=== PATIENT | male | born 2000 | race American Indian/Alaskan Native ===

== ENCOUNTER 2022-05-05 07:41 | Emergency (ER) | payer SELFPAY ==
--- NOTE | 2022-05-05 08:31 | Emergency Department Report ---
ED Psych HPI - General Chief Complaint: Psych Stated Complaint: PSYCH Time Seen by Provider: 05/05/22 07:58 Source: patient, EMS ( EMS documentation not available at time of chart dictation ), RN notes reviewed Mode of arrival: Ambulatory Limitations: No Limitations - History of Present Illness Initial Comments: The patient was evaluated in the emergency department for symptoms described in the history of present illness. He/she was evaluated in the context of the global COVID-19 pandemic, which necessitated consideration that the patient might be at risk for infection with the virus that causes COVID-19. Institutional protocols and algorithms that pertain to the evaluation of patients at risk for COVID-19 are in a state of rapid change based on information released by regulatory bodies including the CDC and federal and state organizations. These policies and algorithms were followed during the patient's care in the emergency department. Please note that these policies, procedures and recommendations changed on a rapid basis. The patient is a 22-year-old gentleman who is brought to the hospital by emergency medical services. The patient himself denies homicidality, suicidality hallucinations, overdose, and access to guns and firearms. On review of systems, he only endorses chronic left-sided knee pain, nontraumatic which is present for 5 years. As per collateral information from nursing team, mother called 911 because the p atient has been rambling, not sleeping, pacing, and experiencing hallucinations. The patient does present with a packet from a local psychiatric facility, uncertain what his existing psychiatric diagnosis is. MD Complaint: other -: year(s) Associated Psychiatric Symptoms: none (Patient denies all symptoms) History of same: Yes Improves With: none Worsens With: none Associated Symptoms: denies other symptoms, other (Left-sided knee pain) - Related Data Previous Rx's Medication Instructions Recorded Last Taken Type Ibuprofen [Motrin] 600 mg PO Q8H PRN #20 tablet 12/18/14 Unknown Rx Allergies Allergy/AdvReac Type Severity Reaction Status Date / Time No Known Allergies Allergy Verified 05/05/22 07:48 ED Review of Systems ROS: Stated complaint: PSYCH Other details as noted in HPI Constitutional: denies: chills, fever Eyes: denies: eye pain, eye discharge, vision change ENT: denies: ear pain, throat pain Respiratory: denies: cough, shortness of breath, wheezing Cardiovascular: denies: chest pain, palpitations Endocrine: no symptoms reported Gastrointestinal: denies: abdominal pain, nausea, diarrhea Genitourinary: denies: urgency, dysuria Musculoskeletal: other (Left-sided knee pain). denies: joint swelling, arthralgia Skin: denies: rash, lesions Neurological: denies: headache, weakness, paresthesias Psychiatric: denies: anxiety, depression Hematological/Lymphatic: denies: easy bleeding, easy bruising ED Past Medical Hx - Past Medical History Hx Psychiatric Treatment: Yes ([facility]) - Social History Smoking Status: Never Smoker - Medications Home Medications: Home Medications Medication Instructions Recorded Confirmed Last Taken Type Ibuprofen [Motrin] 600 mg PO Q8H PRN #20 tablet 12/18/14 Unknown Rx ED Physical Exam - General Limitations: No Limitations General appearance: alert, in no apparent distress - Head Head exam: Present: atraumatic, normocephalic - Eye Eye exam: Present: normal appearance, EOMI. Absent: nystagmus - ENT ENT exam: Present: normal exam, normal orophraynx, mucous membranes moist, normal external ear exam - Neck Neck exam: Present: normal inspection, full ROM. Absent: tenderness, meningismus - Respiratory Respiratory exam: Present: normal lung sounds bilaterally. Absent: respiratory distress, wheezes, rales, rhonchi, stridor, decreased breath sounds - Cardiovascular Cardiovascular Exam: Present: regular rate, normal rhythm, normal heart sounds. Absent: bradycardia, tachycardia, irregular rhythm, systolic murmur, diastolic murmur, rubs, gallop - GI/Abdominal GI/Abdominal exam: Present: soft. Absent: distended, tenderness, guarding, rebound, rigid, pulsatile mass - Rectal Rectal exam: Present: deferred - Extremities Exam Extremities exam: Present: normal inspection, full ROM, other (2+ pulses noted in the bilateral upper and lower extremities. There is no palpable cord. negative Homans sign. Muscular compartments are soft. The pelvis is stable.). Absent: pedal edema, calf tenderness - Back Exam Back exam: Present: normal inspection. Absent: tenderness, CVA tenderness (R), CVA tenderness (L), paraspinal tenderness, vertebral tenderness - Neurological Exam Neurological exam: Present: alert, oriented X3, normal gait, other (No facial droop. Tongue midline. Extraocular movements intact bilaterally. Facial sensation intact to light touch in V1, V2, V3 distribution bilaterally. 5 and a 5 strength in 4 extremities. Sensation intact to light touch in 4 extremities.). Absent: motor sensory deficit - Psychiatric Psychiatric exam: Present: normal affect, normal mood. Absent: homicidal ideation, suicidal ideation - Skin Skin exam: Present: warm, dry, intact, normal color. Absent: rash ED Course Vital Signs 05/05/22 05/05/22 05/05/22 07:41 07:48 09:16 Temperature 98.2 F 97.6 F Pulse Rate 80 82 Respiratory 18 18 Rate Blood Pressure 132/80 145/92 [Right] O2 Sat by Pulse 100 99 98 Oximetry - Reevaluation(s) Reevaluation #1: 05/05/22 08:29 Differential diagnosis, including but not limited to: Encounter for medical screening examination, encounter for behavioral health screening examination Assessment and plan: 22-year-old gentleman, who presents as awake, alert, oriented, sober, of sound mind, GCS 15, Who is not homicidal, who is not suicidal, who denies overdose, who has no acute psychiatric complaints. In my opinion, he does not meet criteria for 1013 hold or involuntary confinement. He does not appear to have an emergent medical condition present at this time. I discussed this with the patient. The patient did indicate he would be happy to speak to one of our psychiatric assessors, and we will therefore obtain mental health evaluation. I anticipate discharge with outpatient follow-up. Patient is agreeable to standard laboratory studies as part of the psychiatric workflow. Do not anticipate any emergent findings. Reevaluation #2: 05/05/22 09:25 Laboratory studies unremarkable. Urinalysis, drug screen and COVID swab pending, in anticipation of psychiatric team's request. However, they are not medically necessary to exclude an emergent condition. This patient is medically suitable for psychiatric consultation, placement, and disposition. Should the psychiatric team recommend psychiatric hospitalization/involuntary confinement, the patient is medically suitable to do so. Should they recommend discharge with outpatient follow-up, he is medically suitable to do so. ED Medical Decision Making - Lab Data Result diagrams: 05/05/22 08:10 05/05/22 08:10 Vital Signs 05/05/22 05/05/22 07:41 07:48 Temperature 98.2 F Pulse Rate 80 Respiratory 18 Rate Blood Pressure 132/80 [Right] O2 Sat by Pulse 100 99 Oximetry Vital Signs 05/05/22 05/05/22 07:41 07:48 Temperature 98.2 F Pulse Rate 80 Respiratory 18 Rate Blood Pressure 132/80 [Right] O2 Sat by Pulse 100 99 Oximetry Critical care attestation.: If time is entered above; I have spent that time in minutes in the direct care of this critically ill patient, excluding procedure time. ED Disposition Clinical Impression: Encounter for medical screening examination, Encounter for behavioral health screening Disposition: 30 STILL A PATIENT Is pt being admited?: No Does the pt Need Aspirin: No Condition: Good
[2022-05-05 08:41] LABS: Hematocrit 48.6 % (35.5-45.6); Hemoglobin 15.6 gm/dl (11.8-15.2); Mean Corpuscular HGB Conc 32 % (32-34); Mean Corpuscular Volume 89 fl (84-94); Platelet Count 200 K/mm3 (140-440); Red Blood Count 5.44 M/mm3 (3.65-5.03)
[2022-05-05] MEDS ORDERED: ALPRAZolam 0.5 MG TAB PO ONE (08:42)
[2022-05-05 08:44] LABS: BUN/Creatinine Ratio 14; Blood Urea Nitrogen 15 mg/dL (9-20); Calcium 9.1 mg/dL (8.4-10.2); Hemolysis Index 3
[2022-05-05 12:01] LABS: Bilirubin,Urine NEG (Negative); Blood,Urine NEG (Negative); Color,Urine Yellow (Yellow); Mucus,Urine FEW /HPF; Protein,Urine <15 mg/dL mg/dL (Negative); RBC,Urine < 1.0 /HPF (0.0-6.0)
[2022-05-05 12:07] LABS: Amphetamine Screen,Urine Negative; Benzodiazepines Screen,Urine Negative; Cannabinoid Screen,Urine Negative; Methadone Screen,Urine Negative; Opiate Screen,Urine Negative
--- NOTE | 2022-05-05 13:47 | Consultation ---
History of Present Illness - Reason for Consult Consult date: 05/05/22 Reason for consult: MHE - History of Present Psychiatric Illness Patient seen by me with Nurse at bedside. Patient is agitated, restless but drowsy and unable to engage in meaningful conversation. He is uncooperative and unaware why he is here. Plan: Will revisit as I am unable to evaluate patient at this time. Medications and Allergies Allergies Allergy/AdvReac Type Severity Reaction Status Date / Time No Known Allergies Allergy Verified 05/05/22 07:48 Home Medications Medication Instructions Recorded Confirmed Last Taken Type Ibuprofen [Motrin] 600 mg PO Q8H PRN #20 tablet 12/18/14 Unknown Rx Mental Status Exam - Vital signs Last Vital Signs Temp 97.6 F 05/05/22 09:16 Pulse 82 05/05/22 09:16 Resp 18 05/05/22 09:16 BP 145/92 05/05/22 09:16 Pulse Ox 98 05/05/22 09:16 Results Result Diagrams: 05/05/22 08:10 05/05/22 08:10 Abnormal lab results 05/05/22 05/05/22 05/05/22 Range/Units 08:10 08:10 08:10 RBC 5.44 H (3.65-5.03) M/mm3 Hgb 15.6 H (11.8-15.2) gm/dl Hct 48.6 H (35.5-45.6) % Salicylates < 0.3 L (2.8-20.0) mg/dL Acetaminophen 5.0 L (10.0-30.0) ug/mL Valproic Acid (50-100) ug/mL 05/05/22 Range/Units 08:10 RBC (3.65-5.03) M/mm3 Hgb (11.8-15.2) gm/dl Hct (35.5-45.6) % Salicylates (2.8-20.0) mg/dL Acetaminophen (10.0-30.0) ug/mL Valproic Acid 5.0 L (50-100) ug/mL All other labs normal.
--- NOTE | 2022-05-05 15:00 | Consultation ---
History of Present Illness - Reason for Consult Consult date: 05/05/22 Reason for consult: MHE - Chief Complaint Chief complaint: I don't know why I am here - History of Present Psychiatric Illness Patient seen by me again with Nurse at bedside. He continues to be agitated, restless and unable to engage in meaningful conversation. He is uncooperative, threatening, unaware why he is here and frustrated by his current situation. He denies abusing drugs. UDS is negative. He is clearly disorganized and appears to be acute psychotic ROS: Constitutional: Negative for weight loss ENT: Negative for stridor Respiratory: Negative for cough or hemoptysis All other systems reviewed and are negative MENTAL STATUS General Appearance and Behavior: uncooperative with questioning Psychomotor Behavior: Increased Mood: OK Affect and affective range: Incongruent with stated mood Thought Process: Not Goal-directed Thought Content: Disorganized Intellectual Functioning Average Suicidal Ideation: Denies SI Homicidal Ideation: Denies HI Impulse Control: Impaired Insight and Judgment: Impaired insight and judgment Memory: Normal Attention: Normal Orientation: alert and oriented RECOMMENDATIONS MEDICATIONS: Geodon prn for agitation MEDICAL: Per primary team [employer]IC: Yes DISPOSITION: Acute inpatient psychiatric hospitalization when medically stable LEGAL STATUS: 1013 FOLLOW-UP: Will follow Please contact with any questions and/or concerns. Medications and Allergies Allergies Allergy/AdvReac Type Severity Reaction Status Date / Time No Known Allergies Allergy Verified 05/05/22 07:48 Home Medications Medication Instructions Recorded Confirmed Last Taken Type Ibuprofen [Motrin] 600 mg PO Q8H PRN #20 tablet 12/18/14 Unknown Rx Mental Status Exam - Vital signs Last Vital Signs Temp 97.6 F 05/05/22 09:16 Pulse 82 05/05/22 09:16 Resp 18 05/05/22 09:16 BP 145/92 05/05/22 09:16 Pulse Ox 98 05/05/22 09:16 Results Result Diagrams: 05/05/22 08:10 05/05/22 08:10 Abnormal lab results 05/05/22 05/05/22 05/05/22 Range/Units 08:10 08:10 08:10 RBC 5.44 H (3.65-5.03) M/mm3 Hgb 15.6 H (11.8-15.2) gm/dl Hct 48.6 H (35.5-45.6) % Salicylates < 0.3 L (2.8-20.0) mg/dL Acetaminophen 5.0 L (10.0-30.0) ug/mL Valproic Acid (50-100) ug/mL 05/05/22 Range/Units 08:10 RBC (3.65-5.03) M/mm3 Hgb (11.8-15.2) gm/dl Hct (35.5-45.6) % Salicylates (2.8-20.0) mg/dL Acetaminophen (10.0-30.0) ug/mL Valproic Acid 5.0 L (50-100) ug/mL All other labs normal. Assessment and Plan - Psychiatric problem (1) Acute psychosis Current Visit: Yes Status: Acute
[2022-05-05] MEDS ORDERED: ZOLPIDEM 5 MG TAB PO PRN (22:51)
[2022-05-05] MEDS ORDERED: ACETAMINOPHEN 500 MG TAB PO ONE (22:51)
[2022-05-06] MEDS ORDERED: LORazepam 2 MG/ML VIAL IM PRN (06:41)
[2022-05-06] MEDS ORDERED: HALOPERIDOL LACTATE 5 MG/1 ML INJ IM PRN (06:41)
--- NOTE | 2022-05-06 06:43 | Event Note ---
Date: 05/06/22 [id number] evaluation performed. Patient is awake, pacing, and negative. He appears to be clearly psychotic. This is a marked change from my initial evaluation yesterday. Psychiatry documentation is reviewed and appreciated. 1013 is recommended. 1013 filled out by the psychiatrist yesterday. Holding orders are initiated. Nursing team reports that the patient is quite agitated. He is currently in room 14, standing up and naked. He is moving 4 extremities, and breathing spontaneously. He remains medically suitable for psychiatric disposition and placement at this time. Vital Signs 05/05/22 05/05/22 05/05/22 07:41 07:48 09:16 Temperature 98.2 F 97.6 F Pulse Rate 80 82 Respiratory 18 18 Rate Blood Pressure 132/80 145/92 [Right] O2 Sat by Pulse 100 99 98 Oximetry 05/05/22 05/05/22 19:52 19:54 Temperature 97.4 F L Pulse Rate 90 Respiratory 16 Rate Blood Pressure 137/80 [Right] O2 Sat by Pulse 99 99 Oximetry
[2022-05-06 09:56] VITALS: BP 150/98
== END 2022-05-06 18:03 | disposition still patient (30) ==
LOC: ED 07:41
DX: F31.9 Bipolar disorder, unspecified (principal); F20.9 Schizophrenia, unspecified; Z13.30 Encounter for screening examination for mental health and behavioral disorders, unspecified; Z20.822 Contact with and (suspected) exposure to COVID-19
CPT/HCPCS: 36415; 80048; 80164; 80307; 81001; 84443; 85027; 99285; U0003; 80320; G0480